=== PATIENT | male | born 1995 | race Two or more races ===

== ENCOUNTER 2023-02-16 08:09 | Emergency (ER) | payer MEDICAID, OTHER ==
[~2023-02-16] VITALS: Ht 172.7 cm; Wt 75.0 kg
[2023-02-16 09:04] VITALS: BP 142/80; PULSE 82; RESP 18; TEMP 98.3; O2SAT 18
[2023-02-16] MEDS ORDERED: IBUP-1456 PO (09:50)
[2023-02-16] MEDS ORDERED: AUG875T PO (09:50)
== END 2023-02-16 10:03 | disposition home or self-care (01) ==
LOC: ER 08:09
DX: S02.69XA Fracture of mandible of other specified site, initial encounter for closed fracture (principal); Y04.2XXA Assault by strike against or bumped into by another person, initial encounter; Y93.89 Activity, other specified; Y92.89 Other specified places as the place of occurrence of the external cause; Y99.8 Other external cause status
CPT/HCPCS: 70110